=== PATIENT | male | born 1955 | race Caucasian/White ===

== ENCOUNTER 2020-01-07 20:08 | Inpatient (IN) | payer MEDICARE ==
[~2020-01-07] VITALS: Ht 177.8 cm; Wt 120.1 kg
[~2020-01-07 20:08] MED LIST: IBUPROFEN 800800 M1 PO; TRAMADOL 50 MG50 MG PO
[2020-01-07 20:29] VITALS: BP 103/64
[2020-01-07 22:37] LABS: URINE BLOOD NEGATIVE (Negative); URINE CLARITY CLEAR; URINE COLOR DARK YELLOW; URINE GLUCOSE-RANDOM NEGATIVE (Negative); URINE KETONES NEGATIVE (Negative); URINE LEUKOCYTES-REFLEX NEGATIVE (Negative); URINE NITRITE-REFLEX NEGATIVE (Negative); URINE PROTEIN NEGATIVE (Negative); URINE SPECIFIC GRAVITY 1.025 (1.005-1.030)
[2020-01-07 22:46] LABS: URINE BILIRUBIN 1+ (Negative)
[2020-01-07] MEDS ORDERED: LASIX 40 MG TAB40 MG PO (22:46)
[2020-01-07] MEDS ORDERED: DEXAMETHASONE6 MG PO (22:46)
[2020-01-07 22:47] LABS: ICTOTEST (BILI CONFIRMATORY) Positive (Negative)
[2020-01-07] MEDS ORDERED: PROPRANOLOL 20M20 M1 PO (22:47)
[2020-01-07] MEDS ORDERED: MUCINEX600 MG PO (22:47)
[2020-01-07] MEDS ORDERED: PROTONIX40 M2 PO (22:47)
[2020-01-07 23:31] LABS: HEMOGLOBIN 9.5 gm/dL (14.0-18.0)
[2020-01-07 23:39] LABS: HEMATOCRIT 29.2 % (42.0-52.0); MCH 25.6 pg (26.0-34.0); MCHC 32.4 g/dL (28.0-37.0); MCV 79.1 fL (80.0-100.0); MPV 9.1 fl. (7.2-11.1); NUCLEATED RBCS 0 /100WBC; PLATELET COUNT* 77 thou/uL (150-400); WBC 7.6 thou/uL (4.0-11.0)
[2020-01-07 23:49] LABS: ALBUMIN 1.9 g/dL (3.4-5.0); CALCIUM 7.7 mg/dL (8.5-10.1); CREATININE 1.2 mg/dL (0.6-1.3); INR 1.5; MAGNESIUM 2.3 mg/dL (1.8-2.4); POTASSIUM 5.7 mmol/L (3.5-5.1); TOTAL BILIRUBIN 4.6 mg/dL (<0.1-1.0); TOTAL PROTEIN 6.1 g/dL (6.4-8.2)
[2020-01-08] VITALS (7 sets, daily range): BP systolic 115–148; BP diastolic 46–64
[2020-01-08 00:37] LABS: ABSOLUTE LYMPHOCYTES 0.8 thou/uL (0.8-5.3); ABSOLUTE MONOCYTES 0.4 thou/uL (0.0-1.2); ABSOLUTE NEUTROPHILS 6.4 thou/uL (1.6-8.1)
[2020-01-08 00:39] LABS: ANISOCYTOSIS 2+; HYPOCHROMASIA 1+; PLATELET ESTIMATE DECREASED
--- NOTE | 2020-01-08 07:50 | NUR ---
REPORT RECIEVED FROM ER. PT ORIENTED TO ROOM, CALL LIGHT SHOWN, FALL AGREEMENT WENT OVER. FALL PRECAUTIONS IN PLACE. PT ORIENTED TO SELF AND YEAR. PT FOCUSED ON GOD AND GODS WILL WHEN TRYING TO CONVERSE WITH PT. PTS CALLED TO GET INFORMATION, PTS STATES THAT THIS IS NEW WITHIN THE PAST 2 DAYS. WHEN ASKED ABOUT DRINKING, PT STATES THAT IT IS NOT UNCOMMON FOR HIM TO "PUT DOWN 1-2 CASES AT A TIME" OF BEER, AND HE STATES HE DRINKS A GALLON OF WHISKEY AT A TIME. HIS STATES THAT HE DRINKS OCCASIONALLY BUT NOT LIKE HOW HE STATES HE DRINKS. DR NOTIFIED. DR ALSO NOTIFIED ABOUT PT RETAINING URINE, ORDER RECIEVED FOR CASTLE, CASTLE PLACED. PT DID HAVE LARGE BOWEL MOVEMENT THIS SHIFT.
[2020-01-08 08:22] LABS: CALCIUM 7.9 mg/dL (8.5-10.1); CREATININE 1.1 mg/dL (0.6-1.3)
[2020-01-08 08:26] LABS: POTASSIUM 3.9 mmol/L (3.5-5.1)
--- NOTE | 2020-01-08 09:53 | NUR ---
CM SPOKE TO THE PT' SPOUSE TO DISCUSS HIS HOME SITUATION, DISCHARGE PLANNING, AN TO INFORM OF THE ROLE OF CM. PT NORMALLY A&O, AND INDEPENDENT WITH ADL'S. PT RESIDES AT HOME WITH SPOUSE AND SHE IS ABLE TO ASSIST THE PT NEEDED. PT USES WALKER FOR MOBILITY, HOME OXYGEN AND CPAP PROVIDED BY [facility]. PT IS CURENTLY ON-SERVICE WITH [facility] AT HOME . PT HAS NO HX OF SNF. PT'S SPOUSE INFORMS THAT THE PT'S PCP IS DR. HUNTER SHELTON AT [facility]. CM WILL REMAIN AVAILABLE TO ASSIST AND FOLLOW NEEDED.
--- NOTE | 2020-01-08 11:38 | EKG ---
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
--- NOTE | 2020-01-08 14:32 | 2DMMODE ---
[place] [address] 2 D/M-MODE ECHOCARDIOGRAM Name: AKIKO VICTOR Room: [address] IN .R.#: [id number] Admission: 01/08/20 Attend Phys: Shon Linton, Discharge: Date of : 51 Date of Service: 01/08/20 1431 Report #: [id number] THIS REPORT FOR: cc: FAM - No family physician/PCP FAM - No family physician/PCP Chet Little MD [facility] ~ APPROVED REPORT Study performed: 01/08/2020 11:49:20 EXAM: Comprehensive 2D, Doppler, and color-flow Echocardiogram Patient Location: In-Patient Room #: [facility] [place] Status: routine BSA: 2.30 HR: 56 bpm BP: 126/59 mmHg Rhythm: NSR Other Information Study Quality: Good Indications edema 2D Dimensions IVSd: 12.50 (7-11mm) LVOT Diam: 20.01 (18-24mm) LVDd: 52.95 mm PWd: 12.50 (7-11mm) Ascending Ao: 32.83 (22-36mm) LVDs: 27.80 (25-40mm) Aortic Root: 32.93 mm Volumes Left Atrial Volume (Systole) LA ESV Index: 35.00 mL/m2 Aortic Valve AoV Peak Casey.: 1.91 m/s AO Peak Gr.: 14.54 mmHg LVOT Max P.59 mmHg AO Mean Gr.: 8.28 mmHg LVOT Mean P.63 mmHg LVOT Max V: 1.70 m/s AO V2 VTI: 42.21 cm LVOT Mean V: 0.95 m/s PRATIK (VTI): 2.78 cm2 LVOT V1 VTI: 37.36 [place] [address] 2 D/M-MODE ECHOCARDIOGRAM Name: AKIKO VICTOR Room: [address]#: [id number] Admission: 01/08/20 Attend Phys: Shon Linton, Discharge: Date of : 51 Date of Service: 01/08/20 1431 Report #: [id number] Mitral Valve E/A Ratio: 1.24 MV Decel. Time: 254.85 ms MV E Max Casey.: 0.90 m/s MV PHT: 73.91 ms MVA (PHT): 2.98 cm2 TDI E/Lateral E': 7.50 E/Medial E': 11.25 Medial E' Casey.: 0.08 m/s Lateral E' Casey.: 0.12 m/s Pulmonary Valve PV Peak Casey.: 1.22 m/s PV Peak Gr.: 5.94 mmHg Tricuspid Valve RAP Estimate: 5.00 mmHg TR Peak Gr.: 17.88 mmHg RVSP: 22.00 mmHg PA Pressure: 22.00 mmHg Left Ventricle The left ventricle is normal size. There is normal LV segmental wall motion. Mild concentric left ventricular hypertrophy. Left ventricular systolic function is normal. LVEF is 65-70%. Transmitral Doppler flow pattern suggests impaired LV relaxation. Right Ventricle The right ventricle is normal size. The right ventricular systolic function is normal. Atria Left atrium is at the upper limits of normal. The right atrium size is normal. Aortic Valve Mild aortic valve sclerosis. No aortic regurgitation is present. There is no aortic valvular stenosis. Mitral Valve The mitral valve is normal in structure. Mild mitral regurgitation. No evidence of mitral valve stenosis. Tricuspid Valve The tricuspid valve is normal in structure. Trace tricuspid regurgitation. [place] [address] 2 D/M-MODE ECHOCARDIOGRAM Name: AKIKO VICTOR Room: [address]#: [id number] Admission: 01/08/20 Attend Phys: Shon Linton, Discharge: Date of : 51 Date of Service: 01/08/20 1431 Report #: [id number] Pulmonic Valve The pulmonary valve is normal in structure. There is no pulmonic valvular regurgitation. Great Vessels The aortic root is normal in size. IVC is normal in size and collapses >50% with inspiration. Pericardium There is no pericardial effusion. <Conclusion> The left ventricle is normal size. Mild concentric left ventricular hypertrophy. Left ventricular systolic function is normal. LVEF is 65-70%. Transmitral Doppler flow pattern suggests impaired LV relaxation. There is normal LV segmental wall motion. Mild aortic valve sclerosis. There is no aortic valvular stenosis. Mild mitral regurgitation. Trace tricuspid regurgitation. No pulmonary hypertension. IVC is normal in size and collapses >50% with inspiration. <ELECTRONICALLY SIGNED> By: Chet Little MD, [facility] 01/08/20 1431 1431 1431 Chet Little MD, [facility] /INF
[2020-01-09] VITALS (7 sets, daily range): BP systolic 114–135; BP diastolic 50–62
--- NOTE | 2020-01-09 05:56 | NUR ---
PT SLEPT SOME THIS SHIFT. ASSESSMENT DOCUMENTED. MEDS GIVEN PER E-MAR. IV PATENT. AT BEGINING OF SHIFT, PT GRIPPING LEFT SIDE OF CHEST AND RUBBING HIS LEFT ARM, WHEN ASKED IF HE WAS HAVING PAIN IN HIS CHEST HE SAID YES BUT WAS NOT ABLE TO DESCRIBE PAIN. DR NOTIFIED, EKG AND TROPONIN OBTAINED. A LITTLE LATER IN SHIFT, PT STARING AT WALL, NOT FOLLOWING COMMANDS, NOT TALKING. DR AND FAMILY NOTIFIED, PT WOULD NOT TALK TO FAMILY EITHER. FAMILY STATED THAT PT DID THIS PRIOR TO ARRIVAL ALSO. LATER IN SHIFT PT STARTED TALKING AGAIN AND STATED HE QUIT TALKING "BECAUSE HE , BUT NOW HE IS ALIVE". FALL PRECAUTIONS IN PLACE. CASTLE IN PLACE DRAINING DEPENDANTLY. WILL CONTINUE WITH PLAN OF CARE.
--- NOTE | 2020-01-09 08:22 | EKG ---
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[place] : 1955 Requested By: Luis Miguel Webber Order Number: [id number] Reading MD: Carlos Chamorro Measurements Intervals [place] Rate: 60 P: 30 UT: 151 QRS: -26 QRSD: 105 T: 20 QT: 455 QTc: 455 Interpretive Statements Sinus rhythm Probable left atrial enlargement Borderline left axis deviation Abnormal R-wave progression, late transition Compared to ECG 01/07/2020 22:28:01 No significant changes Electronically Signed On 01-09-2020 8:22:32 CDT by Carlos Chamorro [email or web address] <ELECTRONICALLY SIGNED> By: Carlos Chamorro MD, [facility] 01/09/20821 39 39 Carlos Chamorro MD, [facility] /EPI
--- NOTE | 2020-01-09 09:47 | NUR ---
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, TRACING SR- UPON ASSESSMENT PT NOTED TO BE RESTING IN BED- PT A&O 1-2 WITH NOTED CONF- CASTLE IN PLACE D/D EDILIA URINE, CONT OF BOWEL- EXT ASSIST X1 WITH TRANSFERS- LCTA, DIMINISHED IN BASES; RESP EVEN AND UN-LABORED- VSS, O2 SAT 96% ON 2L VIA NC- ABD SOFT/OBESE/NON-TENDER, BS X4 QUADS- LAST BM REPORTED 01/08/20- IV NOTED TO LEFT AC INTACT AND SL, IV ABT GIVEN THIS AM PRESCRIBED- 3-4+ BLE PITTING EDEMA, +1 EDEMA NOTED TO UE- PT ANXIUS THIS AM WITH CONTINUED C/O DISCOMFORT AND WANTING PLASTIC THING (CASTLE) TO BE REMOVED- CALL LIGHT AND PERSONAL BELONGINGS WITH IN REACH- HOURLY ROUNDS IN PLACE R/T SAFETY/NEEDS- ALL NEEDS MET AT THIS TIME-WCTM
[2020-01-09 11:04] LABS: ABSOLUTE EOSINOPHILS 0.2 thou/uL (0.0-0.7); ABSOLUTE LYMPHOCYTES 0.9 thou/uL (0.8-5.3); ABSOLUTE MONOCYTES 0.6 thou/uL (0.0-1.2); ABSOLUTE NEUTROPHILS 4.6 thou/uL (1.6-8.1); EOSINOPHILS 3.2 %; HEMATOCRIT 29.2 % (42.0-52.0); HEMOGLOBIN 9.5 gm/dL (14.0-18.0); LYMPHOCYTES 13.7 %; MCH 25.5 pg (26.0-34.0); MCHC 32.5 g/dL (28.0-37.0); MCV 78.5 fL (80.0-100.0); MPV 8.9 fl. (7.2-11.1); NUCLEATED RBCS 0 /100WBC; PLATELET COUNT* 79 thou/uL (150-400); POLYS 74.1 %; RBC 3.73 mil/uL (4.50-6.00); RDW-CV 24.1 % (10.5-14.5); WBC 6.3 thou/uL (4.0-11.0)
[2020-01-09 11:17] LABS: ALBUMIN 1.9 g/dL (3.4-5.0); CREATININE 1.2 mg/dL (0.6-1.3); POTASSIUM 3.3 mmol/L (3.5-5.1); TOTAL BILIRUBIN 5.2 mg/dL (<0.1-1.0); TOTAL PROTEIN 5.6 g/dL (6.4-8.2)
[2020-01-09 11:37] LABS: PLATELET ESTIMATE DECREASED
[2020-01-09 11:38] LABS: POLYCHROMASIA 1+; TARGET CELLS 1+
[2020-01-09 11:39] LABS: ANISOCYTOSIS 2+; HYPOCHROMASIA 2+; POIKILOCYTOSIS 1+
[2020-01-10] VITALS: BP 114/55
[2020-01-10 04:00] VITALS: BP 119/62
[2020-01-10 04:57] LABS: ABSOLUTE EOSINOPHILS 0.2 thou/uL (0.0-0.7); ABSOLUTE MONOCYTES 0.6 thou/uL (0.0-1.2); ABSOLUTE NEUTROPHILS 4.3 thou/uL (1.6-8.1); BASOPHILS 0.4 %; EOSINOPHILS 3.6 %; HEMATOCRIT 26.9 % (42.0-52.0); HEMOGLOBIN 8.8 gm/dL (14.0-18.0); MCHC 32.9 g/dL (28.0-37.0); MCV 79.1 fL (80.0-100.0); MONOCYTES 9.8 %; MPV 9.7 fl. (7.2-11.1); NUCLEATED RBCS 0 /100WBC; PLATELET COUNT* 67 thou/uL (150-400); POLYS 70.2 %; RDW-CV 24.1 % (10.5-14.5); WBC 6.1 thou/uL (4.0-11.0)
[2020-01-10 05:18] LABS: ALBUMIN 1.8 g/dL (3.4-5.0); CALCIUM 7.3 mg/dL (8.5-10.1); CREATININE 1.3 mg/dL (0.6-1.3); TOTAL BILIRUBIN 6.2 mg/dL (<0.1-1.0); TOTAL PROTEIN 5.3 g/dL (6.4-8.2)
[2020-01-10 05:23] LABS: POTASSIUM 2.7 mmol/L (3.5-5.1)
--- NOTE | 2020-01-10 06:43 | NUR ---
NO ACUTE CHANGES THROUGHOUT SHIFT. VSS. ALL ROUNDINGS COMPLETED, ALL NEEDS MET, ALL ASSESSMENTS COMPLETED CHARTED. DAUGHTER SHANI REQUESTING THAT THE DOCTOR CALL HER AT [phone] TO TRANSFER PT TO [facility].
[2020-01-10 08:00] VITALS: BP 119/62
[2020-01-10 12:22] VITALS: BP 119/56
[2020-01-10 14:14] LABS: TOTAL BILIRUBIN 5.9 mg/dL (<0.1-1.0)
--- NOTE | 2020-01-10 14:20 | NUR ---
CM INFORMED BY NURSING THAT THE PT'S FAMILY REQUESTED TRANFER TO [facility]. CHEMICAL TESTER IN AGEEMENT WITH PLAN TO TRANSFER PT. CM SPOK ETO [facility] TRANSFER TEAM TO INFORM OF THE TRANSFER. [facility] TRANSFER TEAM INFORMS THAT 'AT THIS TIME [facility] IS CLOSED TO TRANSFERS, BUT MAY HAV BED AVAILABILITY AT ANOTHER FACILITY AND TO RETURN CALL WITH CHOICE OF FACILITY'. CM TO INFORM CHEMICAL TESTER, RN, AND FAMILY OF THIS INFO. CM WILL REMAIN AVAILABLE TO ASSIST AND FOLLOW NEEDED.
--- NOTE | 2020-01-10 19:03 | NUR ---
PATIENT RESTING IN BED. UP WITH ASSIST X1. AOX1-2, CONFUSED. VSS. POTASSIUM REPLACEMENT PER PROTOCOL. SPOKE WITH FAMILY MULTIPLE TIMES TODAY AND THEY ARE REQUESTING TRANSFER TO [facility].. HOURLY ROUNDING COMPLETED FOR PATIN[place] SAFETY.
[2020-01-10 21:10] VITALS: BP 115/67
[2020-01-11] VITALS: BP 92/46
[2020-01-11 04:29] VITALS: BP 118/54
[2020-01-11 05:07] LABS: HEPATITIS B SURFACE AG Negative (Negative)
[2020-01-11 05:20] LABS: ABSOLUTE BASOPHILS 0.2 thou/uL (0.0-0.2); ABSOLUTE EOSINOPHILS 0.1 thou/uL (0.0-0.7); ABSOLUTE LYMPHOCYTES 1.1 thou/uL (0.8-5.3); ABSOLUTE NEUTROPHILS 7.4 thou/uL (1.6-8.1); BASOPHILS 1.8 %; EOSINOPHILS 0.9 %; HEMATOCRIT 28.1 % (42.0-52.0); HEMOGLOBIN 9.3 gm/dL (14.0-18.0); MCH 26.4 pg (26.0-34.0); MCHC 33.2 g/dL (28.0-37.0); MCV 79.4 fL (80.0-100.0); MONOCYTES 10.6 %; MPV 9.5 fl. (7.2-11.1); NUCLEATED RBCS 0 /100WBC; PLATELET COUNT* 76 thou/uL (150-400); POLYS 75.7 %; RBC 3.53 mil/uL (4.50-6.00); RDW-CV 23.8 % (10.5-14.5); WBC 9.7 thou/uL (4.0-11.0)
[2020-01-11 05:42] LABS: ALBUMIN 1.8 g/dL (3.4-5.0); CALCIUM 7.4 mg/dL (8.5-10.1); CREATININE 1.6 mg/dL (0.6-1.3); POTASSIUM 3.6 mmol/L (3.5-5.1); TOTAL BILIRUBIN 7.5 mg/dL (<0.1-1.0); TOTAL PROTEIN 5.3 g/dL (6.4-8.2)
--- NOTE | 2020-01-11 05:53 | NUR ---
NO ACUTE CHANGES THROUGHOUT SHIFT. VSS. ALL ROUNDINGS COMPLETED, ALL NEEDS MET, FULL ASSESSMENT COMPLETED CHARTED. FAMILY REQUESTING THAT PT BE TRANSFERED TO A DIFFERENT HOSPITAL. FAMILY ALSO REQUESTING THAT PT NO LONGER TAKE PROTONIX & THAT PT RECEIVE MORE FLUID AND NUTRITION.
[2020-01-11 08:00] VITALS: BP 122/47
[2020-01-11 10:29] LABS: BE 3.1 mmol/L (-2 to +3); PO2 88.3 mmHg (75.0-100.0); pH 7.476 (7.340-7.450)
[2020-01-11 11:30] VITALS: BP 121/50
--- NOTE | 2020-01-11 14:18 | NUR ---
CM RECEIVED A CALL FROM [facility] TRANSFER TEAM AND THEY INFORM THAT THEY HAVE ACCEPTED THE PT TO [facility]. ACCEPTING PHYSICIAN: DR. NICKIE KATZ, PT RM #[id number], RN TO CALL REPORT TO LUIS MIGUEL ([phone]). CM ARRANGED TRANPORT FOR 1500 WITH [facility]. CM INFORMED THE RN IN-CHARGE OF THE PT. OF THE PT'S TIME OF TRANSFER AND WHERE TO CALL REPORT. RN IN AGREEMENT. RN TO INFORM FAMILY. CM WILL REMAIN AVAILABLE TO ASSIST AND FOLLOW NEEDED.
--- NOTE | 2020-01-11 16:37 | NUR ---
PT. TRANSFERRED TO [facility] PRIOR TO O.T. EVAL. PLEASE ORDER FURTHER O.T. SERVICES IF NEEDED.
== END 2020-01-11 15:35 | disposition short-term general hospital (02) | DRG 193 ==
LOC: M.ERS 20:08 → M.TBA-ER 01-08 00:30 → M.2W 01-08 00:30
PROVIDERS: Emergency Medicine; Internal Medicine; Nurse Practitioner; ADMIT Internal Medicine; ATTEND Internal Medicine
DX: J12.89 Other viral pneumonia (principal); G93.41 Metabolic encephalopathy; B15.9 Hepatitis A without hepatic coma; I85.00 Esophageal varices without bleeding; Z79.899 Other long term (current) drug therapy; E87.5 Hyperkalemia; K74.60 Unspecified cirrhosis of liver; F31.9 Bipolar disorder, unspecified; D69.6 Thrombocytopenia, unspecified; E88.09 Other disorders of plasma-protein metabolism, not elsewhere classified; E80.6 Other disorders of bilirubin metabolism; Z20.828 Contact with and (suspected) exposure to other viral communicable diseases